=== PATIENT | male | born 1965 | race Caucasian/White ===

== ENCOUNTER 2020-03-19 08:13 | Outpatient (REF) | payer OTHER, SELFPAY ==
[2020-03-19 09:18] LABS: Alanine Aminotransferase 34 U/L (0-40); Albumin Level 4.3 g/dL (3.5-5.0); Alkaline Phosphatase 74 U/L (39-117); Anion Gap 12 (12-20); Aspartate Amino Transferase 30 U/L (5-37); Bilirubin Direct 0.3 mg/dL (0.0-0.5); Bilirubin Total 0.7 mg/dL (0.0-1.0); Blood Urea Nitrogen 23 mg/dL (9-16); Calcium 8.9 mg/dL (8.4-10.2); Carbon Dioxide 28 mmol/L (22-29); Chloride 106 mmol/L (96-108); Cholesterol 100 mg/dL; Estimated Glomerular Filt Rate > 60; Glucose Fasting 89 mg/dL (60-99); HDL Cholesterol 43 mg/dL; LDL Cholesterol Calculated 24 mg/dl; Potassium 4.2 mmol/l (3.3-5.1); Sodium 142 mmol/L (135-145); Total Protein 6.8 g/dL (6.5-8.0); Triglycerides 169 mg/dL
== END 2020-03-19 08:14 | disposition home or self-care (01) ==
LOC: HO.LAB 08:13
PROVIDERS: PCP Student in an Organized Health Care Education/Training Program; Visit Provider Student in an Organized Health Care Education/Training Program
DX: E78.5 Hyperlipidemia, unspecified (principal); I10 Essential (primary) hypertension
CPT/HCPCS: 80048; 80061; 80076

== ENCOUNTER 2023-12-20 08:06 | Outpatient (REF) | payer OTHER, SELFPAY ==
[2023-12-20 14:26] LABS: MANUAL DIFF FLAG NO
[2023-12-20 14:35] LABS: Basophils Absolute Auto 0.1 X10*3/uL (0.0-0.2); Basophils Percent Auto 1.7 % (0-2); Eosinophils Absolute Auto 0.3 X10*3/uL (0.0-0.4); Eosinophils Percent Auto 5.9 % (0-4); Hematocrit 40.3 % (42.0-52.0); Hemoglobin 14.5 g/dl (14.0-18.0); Imm Gran Abs Auto 0.02 X10*3/uL (0.00-0.03); Imm Gran Pct Auto 0.3 % (0.0-0.4); Lymphocytes Percent Auto 34.8 % (20-40); Mean Corpuscular Volume 94.6 fL (80.0-98.0); Mean Platelet Volume 10.9 fL (9.4-12.4); Monocytes Absolute Auto 0.6 X10*3/uL (0.1-1.2); Monocytes Percent Auto 9.6 % (2-11); Neutrophils Absolute Auto 2.7 x10*3/uL (2.0-8.3); Neutrophils Percent Auto 47.7 % (45-73); Platelet Count 140 X10*3/uL (160-400); Red Blood Count 4.26 X10*6/uL (4.60-5.80); Red Cell Distribution Width 11.2 % (11.0-16.0); White Blood Count 5.7 X10*3/uL (4.8-10.8)
[2023-12-20 14:52] LABS: Alanine Aminotransferase 28 U/L (0-40); Albumin Level 4.2 g/dL (3.5-5.0); Alkaline Phosphatase 57 U/L (39-117); Anion Gap 15 (12-20); Aspartate Amino Transferase 34 U/L (5-37); Bilirubin Total 0.6 mg/dL (0.0-1.0); Blood Urea Nitrogen 14 mg/dL (9-16); Calcium 10.1 mg/dL (8.4-10.2); Carbon Dioxide 24 mmol/L (22-29); Chloride 105 mmol/L (96-108); Cholesterol 159 mg/dL (<200); Estimated Glomerular Filt Rate > 60; Glucose Random 87 mg/dL (60-115); HDL Cholesterol 49 mg/dL (>40); LDL Cholesterol Calculated 46 mg/dL (<100); Sodium 141 mmol/L (135-145); Triglycerides 323 mg/dL (<150)
[2023-12-20 15:09] LABS: PSA,Total (Free>4and<10) 1.24 ng/mL (0.00-4.00)
[2023-12-21 04:19] LABS: HIV AB/AG Nonreactive (Nonreactive); HIV Num 1 0.05 S/CO (0.00-0.99); ~HepC Num1 0.18 S/CO (0.00-0.79); ~Hepatitis C Antibody Nonreactive (Nonreactive)
== END 2023-12-20 08:07 | disposition home or self-care (01) ==
LOC: HO.CHCLDS 08:06
PROVIDERS: Visit Provider Family Medicine
DX: I10 Essential (primary) hypertension (principal); Z13.9 Encounter for screening, unspecified; Z12.5 Encounter for screening for malignant neoplasm of prostate
CPT/HCPCS: 36415; 80053; 80061; 84153; 85025; 86803; 87389

== ENCOUNTER 2024-01-13 08:54 | Outpatient (REF) | payer OTHER, SELFPAY ==
[2024-01-13 14:57] LABS: Anion Gap 15 (12-20); Blood Urea Nitrogen 18 mg/dL (9-16); Calcium 9.6 mg/dL (8.4-10.2); Carbon Dioxide 24 mmol/L (22-29); Chloride 109 mmol/L (96-108); Estimated Glomerular Filt Rate 54; Glucose Random 75 mg/dL (60-115); Magnesium 2.4 mg/dL (1.6-2.6); Potassium 3.5 mmol/L (3.3-5.1); Sodium 144 mmol/L (135-145)
== END 2024-01-13 08:55 | disposition home or self-care (01) ==
LOC: HO.CHCLDS 08:54
PROVIDERS: Visit Provider Family Medicine
DX: E87.6 Hypokalemia (principal)
CPT/HCPCS: 36415; 80048; 83735

== ENCOUNTER 2025-03-12 08:06 | Outpatient (REF) | payer OTHER, SELFPAY ==
[2025-03-12 14:11] LABS: MANUAL DIFF FLAG NO
[2025-03-12 14:21] LABS: Hematocrit 41.9 % (42.0-52.0); Hemoglobin 14.4 g/dl (14.0-18.0); Imm Gran Abs Auto 0.02 X10*3/uL (0.00-0.03); Imm Gran Pct Auto 0.3 % (0.0-0.4); Lymphocytes Absolute Auto 1.4 X10*3/uL (1.2-4.9); Mean Corpuscular HGB Conc 34.4 g/dl (31.0-36.0); Mean Corpuscular Hemoglobin 33.3 pg (27.0-33.0); Mean Corpuscular Volume 96.8 fL (80.0-98.0); NRBC Abs Auto 0.000 X10*3/uL (0.0-0.012); NRBC Pct Auto 0.0 /100WBC (0.0-0.2); Platelet Count 118 X10*3/uL (160-400); Red Blood Count 4.33 X10*6/uL (4.60-5.80); White Blood Count 7.0 X10*3/uL (4.8-10.8)
[2025-03-12 14:30] LABS: Alanine Aminotransferase 41 U/L (0-40); Albumin Level 4.3 g/dL (3.5-5.0); Alkaline Phosphatase 73 U/L (39-117); Anion Gap 10 (12-20); Aspartate Amino Transferase 44 U/L (5-37); Blood Urea Nitrogen 19 mg/dL (9-16); Calcium 9.6 mg/dL (8.4-10.2); Carbon Dioxide 27 mmol/L (22-29); Chloride 106 mmol/L (96-108); Cholesterol 101 mg/dL (<200); Estimated Glomerular Filt Rate > 60; HDL Cholesterol 50 mg/dL (>40); Potassium 3.0 mmol/L (3.3-5.1); Sodium 140 mmol/L (135-145); Total Protein 6.7 g/dL (6.5-8.0); Triglycerides 92 mg/dL (<150)
[2025-03-12 14:42] LABS: PSA,Total (Free>4and<10) 0.92 ng/mL (0.00-4.00)
[2025-03-21 14:04] LABS: Testosterone, Free 77.6 pg/mL (35.0-155.0)
== END 2025-03-12 08:07 | disposition home or self-care (01) ==
LOC: HO.CHCLDS 08:06
PROVIDERS: Visit Provider Family Medicine
DX: E66.811 Obesity, class 1 (principal); Z68.30 Body mass index [BMI] 30.0-30.9, adult; Z12.5 Encounter for screening for malignant neoplasm of prostate; N52.9 Male erectile dysfunction, unspecified; Z13.29 Encounter for screening for other suspected endocrine disorder
CPT/HCPCS: 36415; 80053; 80061; 84153; 84402; 84403; 84443; 85025

== ENCOUNTER 2025-03-26 08:11 | Outpatient (REF) | payer OTHER, SELFPAY ==
--- OUTSIDE RECORDS SUMMARY | 2025-03-26 08:14 | XMS_ITS | Clinical Summary ---
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 30 tablet 3 11/30/19 23 Active Blood Pressure kitIndications: Essential hypertension 1 kit in the morning. 1 kit 11/30/19 23 Active loratadine (Claritin) 10 MG tabletIndicatio ns:Cough, unspecified type Take 1 tablet (10 mg) by mouth in the morning. 90 tablet 11/30/19 23 Active atorvastatin (Lipitor) 20 MG tabletIndicatio ns:Hyperlipidem ia,Hypertriglyc eridemia Take 1 tablet (20 mg) by mouth Once per day. 30 tablet 11 02/16/20 25 Active eszopiclone (Lunesta) 2 MG tablet Take 1 tablet (2 mg) by mouth at bedtime. Take immediately before bedtime 28 tablet 2 03/11/20 25 Active olmesartan (Benicar) 20 MG tablet Take 1 tablet (20 mg) by mouth Once per day. 90 tablet 1 03/11/20 25 Active omega-3 (Fish Oil) 1000 MG capsuleIndicati ons:Essential hypertension Take 1 capsule (1,000 mg) by mouth every 12 (twelve) hours. 180 capsule 2 03/11/20 25 Active sildenafil (Viagra) 100 MG tablet Take 1 tablet (100 mg) by mouth if needed each day for erectile dysfunction. 20 tablet 03/11/20 25 Active hydroCHLOROthia zide (HYDRODiuril) 25 MG tablet Take 1 tablet (25 mg) by mouth Once per day. 30 tablet 11 03/17/20 25 2025 Active omega-3 (Fish Oil) 1000 MG capsuleIndicati ons:Essential hypertension Take 1 capsule (1,000 mg) by mouth every 12 (twelve) hours. 30 capsule 2 11/30/19 23 2024 Discontinued(R eorder (will not trigger notification to Pharmacy)) losartan (Cozaar) 100 MG tabletIndicatio ns:Essential hypertension TAKE 1 TABLET BY MOUTH EVERY DAY IN THE MORNING 90 tablet 2 08/15/19 25 2024 Discontinued(T herapy completed) chlorthalidone (Hygroton) 50 MG tabletIndicatio ns:Essential hypertension TAKE 1 TABLET BY MOUTH EVERY DAY 90 tablet 1 11/11/19 25 2024 Discontinued(S pablito effects) Active Problems Problem Noted Date Diagnosed Date Physical exam 01/20/2024 Assessment & Plan (01/20/2024 10:57 PM EDT): 58 y.o. who presented for annual physical exam. Medical information updated Care gaps reviewed IZ reviwed. Discussed calorie deficit, recommended reduction of 20-30% of maintenance calories; chief supply chain officer referral offered. Recommended to decrease soda and sugary beverage consumption. Recommended at least 20 g per meal of protein to assist with satiety. Recommended at least 150 min/week of moderate intensity exercise. Prostate cancer screening 12/19/2023 Obstructive sleep apnea 05/11/2022 Assessment & Plan (05/14/2022 5:04 PM EST): STOP-BANG, 5 points. Will send for sleep study Essential hypertension 04/20/2014 Assessment & Plan (12/20/2023 2:32 AM EDT): Controlled. Reports taking medications as prescribed. Pt denies having a any side-effects to meds. Reviewed meds with pt. Assessment & Plan (06/29/2022 9:43 AM EST): Uncontrolled, reports taking medications, his benezepril was discontinued given concern of NATALIE-induced cough to ARB. At this point I have increased his diuretic and placed on recall list. Assessment & Plan (05/14/2022 5:07 PM EST): Will switch to ARB and refill his hydrochlorothiazide, reports he has not taken diuretic in a while. Assessment & Plan (04/27/2022 4:40 PM EST): Uncontrolled. Will send home BP, target < 140/90 mmHg. Will schedule for followup within the month and if still elevated will incr lisinopril to 40 mg. Can also consider NATALIE-I contributing to cough and switch to losartan. Will need to cont monitoring. Resolved Problems Problem Noted Date Diagnosed Date Resolved Date Cough 05/14/2022 12/19/2023 Assessment & Plan (05/14/2022 5:04 PM EST): Will discontinue NATALIE-I and switch to ARB, recommended followup PCP. Upper respiratory tract infection 04/27/2022 12/19/2023 Assessment & Plan (04/27/2022 4:38 PM EST): In the setting of recent COVID, may have lingering cough. Reports cough is worse at night and is dry, although not hx of asthma, does have bronchitis/obstructive symptoms, will send trial of steroids and inhaler. Also with rhinosinusitis symptoms lasting more then 10 days will send antibiotics and schedule f/up with PCP. If no improvement consider imaging and other w/up. Shoulder pain 09/26/2017 12/19/2023 Encounters Date Type Department Care Team Description 03/17/2025 Results Follow-Up [facility] [address] [place] [address] Jessi Montana MD CBC auto differential, Comprehensive Metabolic Panel, Lipid Panel, Standard, Additional followed-up results: 2 03/16/2025 Telephone [employer] [address] [place] [phone] Jessi Montana MD home sleep test order 03/11/2025 2:00 PM EST Office Visit [facility] [address] [place] [address] Jessi Montana MD Obstructive sleep apnea (Primary Dx); Encounter for immunization; Encounter for vaccination; Physical exam; Primary insomnia; Class 1 obesity with body mass index (BMI) of 30.0 to 30.9 in adult, unspecified obesity type, unspecified whether serious comorbidity present; Essential hypertension; Prostate cancer screening; Erectile dysfunction, unspecified erectile dysfunction type 03/11/2025 Telephone [facility] [address] [place] [address] Jessi Montana MD Appointment Request 03/11/2025 Travel 03/10/2025 Telephone [facility] [address] [place] [address] Jessi Montana MD Chart Prep 03/03/2025 Patient Outreach [facility] [address] [place] [phone] Jessi Montana MD Pre-visit Planning (SDOH screening negative and Tobacco screening negative) 02/15/2025 Telephone [facility] [address] [place] [address] Jessi Montana MD Med Refill from Last 3 Months Immunizations Immunization Administration Dates Next Due Influenza injectable quadriv alent IIV4 with preservative 03/04/2018,02/06/2016,02/01/2015 Influenza injectable quadriv alent preservative free 04/08/2020 Influenza, Split (incl. abbie fied surface antigen) 05/14/2013,01/16/2012 Influenza, seasonal, injecta ble, preservative free 03/11/2025 Pfizer Covid-19 Vaccine 12+ 03/11/2025 Pneumococcal Conjugate PCV 20 03/11/2025 Td (adult), 5 Lf tetanus tox oid, preservative free, adsorbed 10/30/2015 Tdap 11/11/2017 Zoster, Recombinant 01/26/2023 Zoster, live 01/21/2022 Social History Tobacco Use Types Packs/Day Years Used Date Smoking Tobacco: Never Passive Smoke Exposure: Never Smokeless Tobacco: Never Tobacco Cessation:Counseling Given: Not Answered Alcohol Use Standard Drinks/Week Comments Never 0 (1 standard drink = 0.6 oz pur e alcohol) Depression Answer Date Recorded Patient Health Questionnaire-9 Score 8 03/11/2025 Patient Health Questionnaire-9 Score 8 03/11/2025 Last PHQ-9: Questionnaire Data Not on file 1 05/11/2024 Housing Stability Answer Date Recorded What is your housing situation today? I have daily cook 03/03/[address] you li ve. Do you have problems with any of the following? None of the above 03/03/2025 Food Insecurity Answer Date Recorded Within the past 12 months, y ou worried that your food would run out before you got money to buy more: Never True 03/03/2025 Within the past 12 months,th e food you bought just didn't last and you didn't have enough money to get more: Never True Transportation Answer Date Recorded In the past 12 months, has l ack of transportation kept you from medical appts, meetings, work or from getting things needed for daily living? No 03/03/2025 Utilities Answer Date Recorded In the past 12 months, has t he electric, gas, oil or water company threatened to shut off services in your home? No 03/03/2025 Depression Answer Date Recorded Patient Health Questionnaire-2 Score 2 03/11/2025 Internet Access Answer Date Recorded Internet Access Q1 Yes 03/03/2025 Internet Access Q2 Not on file 03/03/2025 Sex and Gender Information Value Date Recorded Sex Assigned at Male 03/05/2022 10:20 AM EDT Legal Sex Male 10:20 AM EDT Gender Identity Male 03/05/2022 10:20 AM EDT Sexual Orientation Straight 03/05/2022 10 :20 AM EDT Last Filed Vital Signs Vital Sign Reading Time Taken Comments Blood Pressure 144/86 03/11/2025 2:12 PM EST Pulse 79 03/11/2025 2:12 PM EST Temperature 36.6 C (97.8 F) 03/11/2025 2:12 PM EST Respiratory Rate 20 03/11/2025 2:12 PM EST Oxygen Saturation 97% 12/19/2023 2:05 PM EDT Inhaled Oxygen Concentration - - Weight 80.7 kg (178 lb) 03/11/2025 2:12 PM EST Height 163.8 cm (5' 4.5 ) 03/11/2025 2:12 PM EST Body Mass Index 30.08 03/11/2025 2:12 PM EST Plan of Treatment Upcoming Encounters Date Type Department Care Team ([facility] st Contact Info) Description 04/22/2025 2:30 PM EST Office Visit [facility] [address] [place] [address] Jessi Montana MD [address] [place] [address] Health Maintenance Due Date Last Done Comments CT Colonography 1963 FIT DNA/Cologuard 1963 FIT 1963 FOBT 1963 Sigmoidoscopy 1963 Colonoscopy 09/28/2025 09/29/2015 Colorectal Cancer Screening 09/28/2025 Alcohol/Substance Use Screening 03/11/2026 03/11/2025 Depression Screening 03/11/2026 03/11/2025, 03/11/20 25 Disability Screening 03/11/2026 03/11/2025 SDOH Screening 03/11/2026 03/11/2025 Tobacco Screening 03/11/2026 03/11/2025 Zoster Vaccines (3 of 3) 03/11/2026 01/26/2023, 01/04 Postponed from 03/23/2023 (Patient Refused) DTaP/Tdap/Td Vaccines (2 - Td or Tdap) 11/12/2027 11/11/2017, 10/30/2015 Lipid Panel 03/12/2030 03/12/2025, 12/04, 05/17/2022 RSV Patients and Patients Aged 60 years or older (1 - 1-dose 75+ series) 11/08/2038 HIV Screening Completed 12/20/2023 Hepatitis C Screening Completed 12/20/2023 COVID-19 Vaccine Completed 03/11/2025 Influenza Vaccine Completed 03/11/2025, , 03/04/2018, Additional history exists Pneumococcal Vaccine: 50+ Years Completed 03/11/2025 HIB Vaccines Aged Out No longer eligi ble based on patient's age to complete this topic HPV Vaccines Aged Out No longer eligi ble based on patient's age to complete this topic Hepatitis A Vaccines Aged Out No long er eligible based on patient's age to complete this topic Hepatitis B Vaccines Aged Out No long er eligible based on patient's age to complete this topic IPV Vaccines Aged Out No longer eligi ble based on patient's age to complete this topic Meningococcal B Vaccine Aged Out No l onger eligible based on patient's age to complete this topic Meningococcal Vaccine Aged Out No karen bruce eligible based on patient's age to complete this topic RSV under 20 months Aged Out No longe r eligible based on patient's age to complete this topic Rotavirus Vaccines Aged Out No longer eligible based on patient's age to complete this topic Procedures Procedure Name Priority Date/Time Associated Diagnosis Comments TESTOSTERONE, FREE (DIALYSIS) AND TOTAL,MS Routine 03/12/2025 8:07 AM EST Erectile dysfunction, unspecified erectile dysfunction type PSA, TOTAL WITH REFLEX TO PSA, FREE Routine 03/12/2025 8:07 AM EST Prostate cancer screening TSH W/REFLEX TO FT4 Routine 03/12/2025 8 :07 AM EST Class 1 obesity with body mass index (BMI) of 30.0 to 30.9 in adult, unspecified obesity type, unspecified whether serious comorbidity present LIPID PANEL, STANDARD Routine 03/12/2025 8:07 AM EST Class 1 obesity with body mass index (BMI) of 30.0 to 30.9 in adult, unspecified obesity type, unspecified whether serious comorbidity present COMPREHENSIVE METABOLIC PANEL Routine 03/12/2025 8:07 AM EST Class 1 obesity with body mass index (BMI) of 30.0 to 30.9 in adult, unspecified obesity type, unspecified whether serious comorbidity present CBC WITH AUTO DIFFERENTIAL Routine 03/12/2025 8:07 AM EST Class 1 obesity with body mass index (BMI) of 30.0 to 30.9 in adult, unspecified obesity type, unspecified whether serious comorbidity present HEPATITIS C AB W/REFL TO HCV RNA, QN, PCR Routine 12/20/2023 8:08 AM EDT Encounter for health-related screening HIV 1/2 ANTIGEN/ANTIBODY, FOURTH GENERATION W/RFL Routine 12/20/2023 8:08 AM EDT Encounter for health-related screening HM COLONOSCOPY Routine 09/29/2015 from Last 3 Months or Most Recently Relevant to Health Maintenance Results * TSH W/Reflex to FT4 (03/12/2025 8:07 AM EST) TSH reflex Free T4 2.48 0.32 - 4.0 uIU/mL [facility] Blood Venous blood specimen / Unknown 03/12/2025 8:07 AM EST 03/12/2025 2:02 PM EST us Jessi Montana MD LAB BLOOD ORDERABLES Final Re sult [facility] [address] [place] [phone] * PSA, Total With Reflex to PSA, Free (03/12/2025 8:07 AM EST) PSA,Total (Free>4and<10) 0.92 0.00 - 4.00 ng/mL [facility] Comment:A Free PSA was not p erformed: The percentage of Free PSA can be used to enhance the differentiation of prostate cancer from benign prostatic disease in subjects whose PSA levels are between 4.0 and 10.0 ng/mL. For subjects whose PSA levels are below 4.0 or above 10.0 ng/mL, the risk of prostate cancer is determined on the basis of the PSA alone. Therefore the % Free PSA is recommended only for those subjects whose PSA levels are between 4.0 and 10.0 ng/mL.PSA methodology: Morgan Alinity i ChemiluminescentMicroparticle Immunoassay (CMIA) 03/12/2025 8:07 AM EST 03/12/2025 2:02 PM EST us Jessi Montana MD LAB BLOOD ORDERABLES Final Re sult [facility] [address] [place], [place] [phone] * (ABNORMAL) CBC auto differential (03/12/2025 8:07 AM EST) White Blood Count 7.0 4.8 - 10.8 X10*3/uL [facility] Red Blood Count 4.33(L) 4.60 - 5.80 X10*6/uL [facility] Hemoglobin 14.4 14.0 - 18.0 g/dl [facility] Hematocrit 41.9(L) 42.0 - 52.0 % [facility] Mean Corpuscular Volume 96.8 80.0 - 98.0 fL [facility] Mean Corpuscular Hemoglobin 33.3(H) 27.0 - 33.0 pg [facility] Mean Corpuscular HGB Conc 34.4 31.0 - 36.0 g/dl [facility] Red Cell Distribution Width 11.4 11.0 - 16.0 % [facility] Platelet Count 118(L) 160 - 400 X10*3/uL [facility] Mean Platelet Volume 11.0 9.4 - 12.4 fL [facility] Neutrophils Percent Auto 63.2 45 - 73 % [facility] Imm Gran Pct Auto 0.3 0.0 - 0.4 % [facility] Lymphocytes Percent Auto 20.3 20 - 40 % [facility] Monocytes Percent Auto 10.4 2 - 11 % [facility] Eosinophils Percent Auto 4.7(H) 0 - 4 % [facility] Basophils Percent Auto 1.1 0 - 2 % [facility] NRBC Pct Auto 0.0 0.0 - 0.2 /100WBC [facility] Neutrophils Absolute Auto 4.4 2.0 - 8.3 x10*3/uL [facility] Imm Gran Abs Auto 0.02 0.00 - 0.03 X10*3/uL [facility] Lymphocytes Absolute Auto 1.4 1.2 - 4.9 X10*3/uL [facility] Monocytes Absolute Auto 0.7 0.1 - 1.2 X10*3/uL [facility] Eosinophils Absolute Auto 0.3 0.0 - 0.4 X10*3/uL [facility] Basophils Absolute Auto 0.1 0.0 - 0.2 X10*3/uL [facility] NRBC Abs Auto 0.000 0.0 - 0.012 X10*3/uL [facility] Blood Venous blood specimen / Unknown 03/12/2025 8:07 AM EST 03/12/2025 2:02 PM EST us Jessi Montana MD LAB BLOOD ORDERABLES Final Re sult [facility] [address] [place] [phone] [phone] * Testosterone, Free (Dialysis) And Total, MS (03/12/2025 8:07 AM EST) Testosterone, Total 404 250 - 1100 ng/dL [facility] Comment:Men with clinically significant hypogonadalsymptoms and testosterone values repeatedly inthe range of the 200-300 ng/dL or less, maybenefit from testosterone treatment afteradequate risk and benefits counseling.For additional information, please refer tohttp://education.[employer]/faq/[email or web address](This link is being provided for informational/educational purposes only.)This test was developed and its analytical performancecharacteristics have been determined by [employer] [place], [place]. It hasnot been cleared or approved by the U.S. Food and DrugAdministration. This assay has been validated pursuantto the CLIA regulations and is used for clinicalpurposes. Testosterone, Free 77.6 35.0 - 155.0 pg/mL [facility] Comment:This test was develo ped and its analytical performancecharacteristics have been determined by [employer] [place], [place]. It hasnot been cleared or approved by the U.S. Food and DrugAdministration. This assay has been validated pursuantto the CLIA regulations and is used for clinicalpurposes.THIS TEST WAS PERFORMED AT:[id number] [place] [phone] MAHAJAN MD,PHD Blood Venous blood specimen / Unknown 03/12/2025 8:07 AM EST 03/12/2025 2:02 PM EST us Jessi Montana MD LAB BLOOD ORDERABLES Final Re sult [facility] [address] [place] [phone] * Lipid Panel, Standard (03/12/2025 8:07 AM EST) Triglycerides 92 <150 mg/dL [facility] Comment:Desirable Triglyceri de: less than 150 mg/dLBorderline High Triglyceride 150-199 mg/dLHigh Triglyceride: 200-499 mg/dLVery High Triglyceride: greater than or equal to 5OO mg/dL Cholesterol 101 <200 mg/dL [facility] Comment:Desirable Cholestero l: less than 200 mg/dLBorderline High Cholesterol: 200-239 mg/dLHigh Cholesterol: greater than 239 mg/dL LDL Cholesterol Calculated 33 <100 mg/dL [facility] Comment:Desirable LDL: less than 100 mg/dLNear Optimal/Above Optimal LDL: 110- 129 mg/dLBorderline High LDL: 130-159 mg/dLHigh LDL: 160-189 mg/dLVery High LDL: greater than or equal to 190 mg/dL HDL Cholesterol 50 >40 mg/dL [facility] Comment:Desirable HDL: great er than 40 mg/dL Note: This HDL assay may give artificially low results in patients with liver disease. Blood Venous blood specimen / Unknown 03/12/2025 8:07 AM EST 03/12/2025 2:02 PM EST us Jessi Montana MD LAB BLOOD ORDERABLES Final Re sult Performing Organization Address City/[facility]/ZIP Co de Phone Number [facility] [address] [place], [place] [phone] * (ABNORMAL) Comprehensive Metabolic Panel (03/12/2025 8:07 AM EST) Sodium 140 135 - 145 mmol/L [facility] Potassium 3.0(L) 3.3 - 5.1 mmol/L [facility] Chloride 106 96 - 108 mmol/L [facility] Carbon Dioxide 27 22 - 29 mmol/L [facility] Anion Gap 10(L) 12 - 20 [facility] Urea Nitrogen (BUN) 19(H) 9 - 16 mg/dL [facility] Creatinine, Serum 0.98 0.5 - 1.4 mg/dL [facility] Estimated Glomerular Filt Rate >60 [facility] Comment:Chronic Kidney Disea se: Estimated GFR < 60 mL/min/1.57r5Rnfbem Kidney Disease: Estimated GFR < 15 mL/min/1.73m2 Glucose 91 60 - 115 mg/dL [facility] Calcium 9.6 8.4 - 10.2 mg/dL [facility] Bilirubin, Total 0.6 0.0 - 1.0 mg/dL [facility] Aspartate Amino Transferase 44(H) 5 - 37 U/L [facility] Alanine Aminotransferase 41(H) 0 - 40 U/L [facility] Total Protein 6.7 6.5 - 8.0 g/dL [facility] Albumin Level 4.3 3.5 - 5.0 g/dL [facility] Alkaline Phosphatase 73 39 - 117 U/L [facility] Blood Venous blood specimen / Unknown 03/12/2025 8:07 AM EST 03/12/2025 2:02 PM EST us Jessi Montana MD LAB BLOOD ORDERABLES Final Re sult Performing Organization Address City/[facility]/ZIP Co de Phone Number [facility] [address] [place] [phone] * Hepatitis C Antibody with Reflex to HCV, RNA, Quantitative, Real-Time PCR (12/20/2023 8:08 AM EDT) Pathologist [facility] Hepatitis C Antibody Nonreactive Nonreactive [facility] Comment:Antibodies to HCV no t detected; does not exclude early acuteHCV infection. Blood Venous blood specimen / Unknown 12/20/2023 8:08 AM EDT 12/20/2023 2:21 PM EDT Jessi Montana MD LAB BLOOD ORDERABLES Final Re sult Performing Organization Address [facility] Co de Phone Number [facility] [address] [place] [phone] * HIV-1/2 Antigen and Antibodies, Fourth Generation, with Reflexes (12/20/2023 8:08 AM EDT) [facility] HIV AB/AG Nonreactive Nonreactive [facility] Comment:HIV-1 p24 Ag and/or HIV-1/HIV-2 Ab not detected.A test result that is nonreactive does not exclude thepossibility of exposure to or infection with HIV-1 and/orHIV-2. Nonreactive results in this assay for individualswith prior exposure to HIV-1 and/or HIV-2 may be due toantigen and antibody levels that are below the limit ofdetection of this assay.The [employer] HIV Ag/Ab Combo assay result andsupplemental assay results should be interpreted inconjunction with the patient's clinical presentation,history and other laboratory results. If the results areinconsistent with clinical evidence, additional testing issuggested to confirm the result. Blood Venous blood specimen / Unknown 12/20/2023 8:08 AM EDT 12/20/2023 2:21 PM EDT us Jessi Montana MD LAB BLOOD ORDERABLES Final Re sult Performing Organization Address City/[facility]/ZIP Co de Phone Number [facility] [address] [place] [phone] * Colonoscopy (09/29/2015) Colonoscopy Normal Normal us Historical Provider HEALTH MAINTENANCE Final Result from Last 3 Months or Most Recently Relevant to Health Maintenance Insurance , [address] [place] [address] Care Teams Monorail Car Operator Relationship Specialty Start Date End Date Jessi Montana MD [address] [place] [phone] PCP - General Family Medicine 09/07/22
--- OUTSIDE RECORDS SUMMARY | 2025-03-26 08:14 | XMS_ITS | Encounter Summary ---
Author Organization [employer] Address [address] 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 Name Role Phone Jessi Montana MD Primary Care Provider Reason for Visit * Reason Comments Med Refill Encounter Details Date Type Department Care Team ([facility] st Contact Info) Description 11/29/2022 Refill [facility]EDS [address] [place], [place] [phone] Chelsey Mar MD [address] [place] [address] Social History Tobacco Use Types Packs/Day Years Used Date Smoking Tobacco: Never Passive Smoke Exposure: Never Smokeless Tobacco: Never Alcohol Use Standard Drinks/Week Comments Never 0 (1 standard drink = 0.6 oz pur e alcohol) Depression Answer Date Recorded Patient Health Questionnaire-9 Score 1 06/21/2022 Depression Answer Date Recorded Patient Health Questionnaire-2 Score 0 06/21/2022 Sex and Gender Information Value Date Recorded Sex Assigned at Male 03/05/2022 10:20 AM EDT Legal Sex Male 10:20 AM EDT Gender Identity Male 03/05/2022 10:20 AM EDT Sexual Orientation Straight 03/05/2022 10 :20 AM EDT COVID-19 Exposure Response Date Recorded In the last 10 days, have yo u been in contact with someone who was confirmed or suspected to have Coronavirus/COVID-19? No / Unsure 10/31/2022 3:32 PM EDT documented as of this encounter Plan of Treatment Upcoming Encounters Date Type Department Care Team (Late st Contact Info) Description 04/22/2025 2:30 PM EST Office Visit [facility] [address] [place] [address] Jessi Montana MD [address] [place] [address] documented as of this encounter Visit Diagnoses Not on filedocumented in this encounter Additional Health Concerns Assessment Noted Time PHQ-9 Depression Total Score: 1 06/21/19 3:22 PM EST documented as of this encounter Care Teams Plastic Block Boiler Reliner Relationship Specialty Start Date End Date Jessi Montana MD [address] [place] [address] PCP - General Family Medicine 09/07/22 documented as of this encounter
--- OUTSIDE RECORDS SUMMARY | 2025-03-26 08:14 | XMS_ITS | Encounter Summary ---
Author Organization [employer] Address [address] [place] [address] Care Team Providers Care Summer Camp Counselor Name Role Phone Dee Dee Morgan MD Primary Care Provider [phone] Jessi Montana MD Primary Care Provider [phone] Reason for Visit * Reason Onset Date Comments Appointment Request 07/12/2022 Encounter Details Date Type Department Care Team ([facility] st Contact Info) Description 07/12/[address] [facility] MEDICINE [address] [place], [place] [phone] Dee Dee Morgan MD [address] [place], [place] [phone] Appointment Request Social History Tobacco Use Types Packs/Day Years [...] suspected to have Coronavirus/COVID-19? No / Unsure 06/21/2022 2:57 PM EST documented as of this encounter Miscellaneous Notes * Telephone Encounter - Verónica Pritchett - 07/12/2022 2:39 PM EST Patient wants to transfer care to a provider who works in the afternoon due to work schedule. Informed will task message to court manager. Agreed with plan. * Telephone Encounter - Kamaljit Martinezos - 07/12/2022 10:40 AM EST Tc from pt requesting to r/s appt on 08/06/22 ( bp ) Please contact pt at [phone] documented in this encounter Plan of Treatment Upcoming Encounters Date Type Department Care Team (Late st Contact Info) Description 04/22/2025 2:30 PM EST Office Visit [facility] MED & PEDS [address] [place] [address] Jessi Montana MD [address] [place] [address] documented as of this encounter Visit Diagnoses Not on filedocumented in this encounter Additional Health Concerns Assessment Noted Time PHQ-9 Depression Total Score: 1 06/21/19 23 3:22 PM EST documented as of this encounter Care Teams Summer Camp Counselor Relationship Specialty Start Date End Date Dee Dee Morgan MD [address] [place] [address] PCP - General Family Medicine 04/21/12 09/06/22 Jessi Montana MD [address] [place] [address] PCP - General Family Medicine 09/07/22 documented as of this encounter
[2025-03-26 14:33] LABS: INTERNATIONAL NORM RATIO 0.9 (0.9-1.1); Prothrombin Time 11.0 SEC (11.2-13.5)
[2025-03-26 14:55] LABS: Iron 138 mcg/dL (45-160); Percent Iron Saturation 55 % (15-50); Total Iron Binding Capacity 251 mcg/dL (228-428); Unsaturated Iron Binding 113 ug/dL
[2025-03-26 15:00] LABS: Microalbum/Creatinine Ratio Ur 3.2 ug/mg cr (<30)
[2025-03-26 15:07] LABS: Ferritin 167 ng/mL (20-250)
[2025-03-26 15:36] LABS: Folate 13.2 ng/mL (> or = 4.0); Vitamin B12 > 2000 pg/mL (200-900)
[2025-03-27 09:03] LABS: HBS Num1 0.37 mIU/mL (0-7.99); HBc Num1 0.14 S/CO (0.00-0.79); HBsAGNum1 0.38 S/CO (0.00-0.99); Hepatitis B Surface Antigen Negative (Negative); ~HepC Num1 0.20 S/CO (0.00-0.79); ~Hepatitis B Surface Antibody NONREACTIVE (Nonreactive); ~Hepatitis C Antibody Nonreactive (Nonreactive)
[2025-03-29 05:00] LABS: Hepatitis A Antibody IgM 0.26 Index (0-0.79); ~Hepatitis A Antibody IgM Nonreactive (Nonreactive)
[2025-04-02 06:03] LABS: ~Hepatitis A Antibody IgG 10.70 S/CO (0.00-0.99)
== END 2025-03-26 08:12 | disposition home or self-care (01) ==
LOC: HO.CHCLDS 08:11
PROVIDERS: Visit Provider Family Medicine
DX: Z51.81 Encounter for therapeutic drug level monitoring (principal); Z13.1 Encounter for screening for diabetes mellitus; R74.01 Elevation of levels of liver transaminase levels; D72.10 Eosinophilia, unspecified; D69.6 Thrombocytopenia, unspecified; E66.811 Obesity, class 1; Z68.30 Body mass index [BMI] 30.0-30.9, adult
CPT/HCPCS: 36415; 82043; 82570; 82607; 82728; 82746; 83036; 83540; 83921; 85610; 86682; 86704; 86706; 86708; 86709; 86803; 87340